=== PATIENT | female | born 1940 | race Caucasian/White ===

== ENCOUNTER 2019-11-02 11:14 | Emergency (ER) | payer MEDICARE, BC ==
[2019-11-02] MEDS ORDERED: Sodium Chloride 0.9% 10 ML Syringe FLUSH PRN (11:41)
[2019-11-02] MEDS ORDERED: Morphine 2 MG/ML Syringe IVPUSH ONE (11:46)
[2019-11-02 12:20] LABS: ANION GAP 12.3; CHLORIDE,CL 102 mmol/L (101-111); SODIUM,NA 141 mmol/L (135-145)
[2019-11-02] MEDS ORDERED: HYDROmorphone 0.5 MG/0.5 ML Syringe IVPUSH ONE (12:24)
--- NOTE | 2019-11-02 13:57 | CR ---
EXAMINATION: Pelvis 1V or 2V SEX: Female AGE: 79 years CLINICAL HISTORY: 79-year-old [facility] patient injured fall out of wheelchair. INTERPRETATION: (AP pelvis) 1. Family comminuted fracture left hemipelvis (innominate bone) with extension/protrusion of the left femoral head into the confines of the pelvis. No proximal left femoral fracture. 2. Accompanying comminuted fractures inferior pubic ramus near the pubic symphysis left hemipelvis. 3. Symmetric spacing SI and contralateral right hip joint which appears intact (deformity contralateral proximal right femur). 4. Chronic arthritic changes lower lumbar spine this osteoporotic patient. CONCLUSION: Markedly abnormal. Comminuted left pelvic fracture.
--- NOTE | 2019-11-02 14:01 | CR ---
EXAMINATION: Clavicle Lt SEX: Female AGE: 79 years CLINICAL HISTORY: 79-year-old female injured fall out of wheelchair at [place]. Badly comminuted FRACTURE left pelvis. INTERPRETATION: 1. Two (2) views left shoulder confirm apparent old midclavicular fracture deformity, on the left. No ipsilateral A/C separation. 2. NOTE: Left midclavicular fracture or initially diagnosed 13 November 2013. 3. No acute left shoulder fracture, before meals separation or glenohumeral dislocation. 4. Underlying ribs upper left hemithorax unremarkable. Left lung apex clear. CONCLUSION: No acute fracture or dislocation left shoulder. Apparent old healed midclavicular fracture on the left.
--- NOTE | 2019-11-02 14:03 | CR ---
EXAMINATION: Femur Min 1V Lt SEX: Female AGE: 79 years CLINICAL HISTORY: 79-year-old female injured (comminuted left pelvic fracture) after fall out of wheelchair at [place]. INTERPRETATION: Single lateral view distal left femur and knee unremarkable. No fracture or dislocation.
--- NOTE | 2019-11-02 14:35 | EDM.PDOC ---
ED HPI GENERAL MEDICAL PROBLEM - General Chief Complaint: Lower Extremity Injury/Pain Stated Complaint: LEFT HIP PAIN Time Seen by Provider: 11/02/19 11:20 Source of Information: Reports: Patient, EMS, EMS Notes Reviewed, Family, Provider (Dr. Taylor), RN, RN Notes Reviewed History Limitations: Reports: No Limitations - History of Present Illness INITIAL COMMENTS - FREE TEXT/NARRATIVE: Pt presents to ER per [facility] with c/o left hip pain. Dr. Taylor , pt provider at [facility] states nursing report of patient falling out of her wheelchair. Patient has hx of dementia, and recent rapid weight loss. Nursing staff reports the patient did not hit her head or get knocked out. Onset: Today, Sudden - Related Data Allergies Allergy/AdvReac Type Severity Reaction Status Date / Time Sulfa (Sulfonamide Allergy Unknown UNKNOWN Verified 11/02/19 11:35 Antibiotics) Home Meds: Home Meds Acetaminophen 650 mg PO Q4H PRN 11/02/19 [History] Aspirin [Halfprin] 81 mg PO DAILY 11/02/19 [History] Bisacodyl [Dulcolax] 10 mg RECTAL DAILY PRN 11/02/19 [History] Calcium Carbonate/Vitamin D3 [Calcium 600 + Vit D 400 Softgl] 1 tab PO BID 11/02 [History] Donepezil HCl 5 mg PO DAILY 11/02/19 [History] Melatonin 3 mg PO BEDTIME 11/02/19 [History] Memantine HCl 5 mg PO BID 11/02/19 [History] Polyethylene Glycol 3350 [MiraLAX] 17 gm PO DAILY 11/02/19 [History] Sennosides/Docusate Sodium [Senna-S] 1 each PO BID 11/02/19 [History] Sertraline HCl 25 mg PO BEDTIME 11/02/19 [History] SitaGLIPtin [Januvia] 50 mg PO DAILY 11/02/19 [History] levETIRAcetam [Keppra] 500 mg PO BID 11/02/19 [History] Past Medical History Cardiovascular History: Reports: Hypertension Gastrointestinal History: Reports: Chronic Constipation Musculoskeletal History: Reports: Osteoporosis Neurological History: Reports: Alzheimers Disease, Seizure Psychiatric History: Reports: Other (See Below) Other Psychiatric History: sleep disorder Endocrine/Metabolic History: Reports: Diabetes, Type II, Osteoporosis, Vitamin D Deficiency Social & Family History - Tobacco Use Smoking Status *Q: Unknown Ever Smoked Second Hand Smoke Exposure: No - Recreational Drug Use Recreational Drug Use: No Review of Systems - Review of Systems Review Of Systems: Comprehensive ROS is negative, except as noted in HPI. ED EXAM, GENERAL - Physical Exam Exam: See Below Exam Limited By: Altered Mental Status (dementia, confusion) General Appearance: Alert, Anxious Eye Exam: Bilateral Eye: EOMI, Normal Inspection Ears: Normal External Exam Nose: Normal Inspection Throat/Mouth: Normal Inspection, Normal Voice, No Airway Compromise Head: Atraumatic, Normocephalic Neck: Normal Inspection, Supple, Non-Tender, Full Range of Motion Respiratory/Chest: No Respiratory Distress, Chest Non-Tender, Decreased Breath Sounds Cardiovascular: Normal Peripheral Pulses, Regular Rate, Rhythm, No Edema, No Gallop, No JVD, No Murmur, No Rub Peripheral Pulses: 1+: Dorsalis Pedis (L), Dorsalis Pedis (R), 2+: Radial (L), Radial (R) GI/Abdominal: Normal Bowel Sounds, Soft, Tender (LLQ) (Female) Exam: Deferred Rectal (Female) Exam: Deferred Extremities: Limited Range of Motion, Other (Pt lateral on left side in position, cries with pain with movement) Neurological: Confused, Disoriented Psychiatric: Other (Patient drowsy from pain medications) Skin Exam: Warm, Dry, Intact, Ecchymosis (Left hip) Lymphatic: No Adenopathy Course - Vital Signs Last Recorded V/S: Last Vital Signs Temp 99.1 F 11/02/19 11:16 Pulse 76 11/02/19 11:16 Resp 18 11/02/19 11:16 BP 115/47 L 11/02/19 11:16 Pulse Ox 97 11/02/19 11:16 - Orders/Labs/Meds Orders: Active Orders 24 hr Category Date Time Status Peripheral IV Care [RC] . DIRECTED Care 11/02/19 11:42 Active Sodium Chloride 0.9% [Saline Flush] Med 11/02/19 11:41 Active 10 ml FLUSH ASDIRECTED PRN Peripheral IV Insertion Adult [OM.PC] Stat Oth 11/02/19 11:30 Ordered Medication Orders Sodium Chloride (Saline Flush) 10 ml FLUSH ASDIRECTED PRN PRN Reason: Keep Vein Open Last Admin: 11/02/19 12:01 Dose: 10 ml Labs: Laboratory Tests 11/02/19 11/02/19 Range/Units 11:50 11:50 WBC 12.0 H (5.0-10.0) 10^3/uL RBC 3.98 L (4.2-5.4) 10^6/uL Hgb 12.6 (12.0-16.0) g/dL Hct 39.6 (37.0-47.0) % MCV 99.5 (80-100) fL MCH 31.7 (27.0-34.0) pg MCHC 31.8 L (33.0-35.0) g/dL Plt Count 251 (150-450) 10^3/uL Neut % (Auto) 86.3 H (42.2-75.2) % Lymph % (Auto) 6.9 L (20.5-50.1) % [place] % (Auto) 6.6 (2-8) % Eos % (Auto) 0.1 L (1.0-3.0) % Baso % (Auto) 0.1 (0.0-1.0) % Sodium 141 (135-145) mmol/L Potassium 4.3 (3.6-5.0) mmol/L Chloride 102 (101-111) mmol/L Carbon Dioxide 31.0 (21.0-31.0) mmol/L Anion Gap 12.3 BUN 35 H (7-18) mg/dL Creatinine 1.0 (0.6-1.3) mg/dL Est Cr Clr Drug Dosing TNP Estimated GFR (MDRD) 53 BUN/Creatinine Ratio 35.00 Glucose 139 H (74-105) mg/dL Calcium 9.2 (8.4-10.2) mg/dl Total Bilirubin 0.6 (0.2-1.0) mg/dL AST 23 (10-42) IU/L ALT 21 (10-60) IU/L Alkaline Phosphatase 35 L (42-121) IU/L Total Protein 6.7 (6.7-8.2) g/dl Albumin 3.6 (3.2-5.5) g/dl Globulin 3.1 Albumin/Globulin Ratio 1.16 Meds: Medications Generic Name Dose Route Start Last Admin Trade Name Freq PRN Reason Stop Dose Admin Sodium Chloride 10 ml 11/02/19 11:41 11/02/19 12:01 Saline Flush FLUSH 10 ml ASDIRECTED PRN Administration Keep Vein Open Discontinued Medications Generic Name Dose Route Start Last Admin Trade Name Kimberly PRN Reason Stop Dose Admin Hydromorphone HCl 0.5 mg 11/02/19 12:24 11/02/19 12:35 Dilaudid IVPUSH 11/02/19 12:25 0.5 mg ONETIME ONE Administration Morphine Sulfate 1 mg 11/02/19 11:46 11/02/19 12:00 Morphine IVPUSH 11/02/19 11:47 1 mg ONETIME ONE Administration - Radiology Interpretation Free Text/Narrative:: pelvis x-ray: 1. Family comminuted fracture left hemipelvis, innominate bone, with extension/ protrusion of the left femoral head into the confines of the pelvis. no proximal left femoral fracture. 2. Accompanying comminuted fractures inferior pubic ramus near the pubic symphysis left hemipelvis. 3. Symmetric spacing SI and contralateral right hip joint which appears intact, deformity contralateral proximal right femur. 4. Chronic arthritic changes lower lumbar spine in this osteoporotic patient. Conclusion: Markedly abnormal. Comminuted left pelvic fracture Left clavicle x-ray: 1. 2 views left shoulder confirm apparent old mid clavicular fracture deformity , on the left. No ipsilateral A/C separation. 2. Note: Left midclavicular fracture or initially [id number] October 2013 3. No acute left shoulder fracture, before meals separation or glenohumeral dislocation. 4. Underlying ribs upper left hemithorax unremarkable. Left lung apex clear. Conclusion: No acute fracture dislocation left shoulder. Apparent old healed midclavicular fracture on the left. Left femur x-ray: single lateral view distal left femur and knee unremarkable. No fracture or dislocation. See radiologist's report - Re-Assessments/Exams Free Text/Narrative Re-Assessment/Exam: 11/02/19 14:54 Patient case discussed with Dr. Vazquez who states the patient would not be a good surgical candidate. Patient case discussed with Dr. Taylor. Dr. Taylor has talked to the family. The patient will be transferred back to the [facility] for [facility] care. Departure - Departure Time of Disposition: 14:35 Disposition: Home, Self-Care 01 Condition: Poor Clinical Impression: Pelvic fracture Qualifiers: Encounter type: initial encounter Pelvic bone location: multiple parts Fracture type: closed Fracture alignment: with unstable disruption of pelvic ring Qualified Code(s): S32.811A - Multiple fractures of pelvis with unstable disruption of pelvic ring, initial encounter for closed fracture [facility] Qualifiers: Encounter type: initial encounter Qualified Code(s): W19.XXXA - Unspecified fall, initial encounter - Discharge Information *PRESCRIPTION DRUG MONITORING PROGRAM REVIEWED*: No *COPY OF PRESCRIPTION DRUG MONITORING REPORT IN PATIENT TONYA: No Forms: ED Department Discharge Additional Instructions: Patient to be discharged back to [facility] in [place] for comfort cares Further orders per Dr. Taylor Sepsis Event Note - Evaluation Sepsis Screening Result: No Definite Risk - Focused Exam Vital Signs: Vital Signs Temp Pulse Resp BP Pulse Ox 11/02/19 11:16 99.1 F 76 18 115/47 L 97 Date Exam was Performed: 11/02/19 Time Exam was Performed: 14:39 - My Orders Last 24 Hours: My Active Orders 11/02/19 11:30 Peripheral IV Insertion Adult [OM.PC] Stat 11/02/19 11:41 Sodium Chloride 0.9% [Saline Flush] 10 ml FLUSH ASDIRECTED PRN 11/02/19 11:42 Peripheral IV Care [RC] . DIRECTED - Assessment/Plan Last 24 Hours: My Active Orders 11/02/19 11:30 Peripheral IV Insertion Adult [OM.PC] Stat 11/02/19 11:41 Sodium Chloride 0.9% [Saline Flush] 10 ml FLUSH ASDIRECTED PRN 11/02/19 11:42 Peripheral IV Care [RC] . DIRECTED
== END 2019-11-02 15:10 | disposition home or self-care (01) ==
LOC: DL.ED 11:14
DX: S32.811A Multiple fractures of pelvis with unstable disruption of pelvic ring, initial encounter for closed fracture (principal); E11.9 Type 2 diabetes mellitus without complications; Z88.2 Allergy status to sulfonamides; Z79.82 Long term (current) use of aspirin; Z79.899 Other long term (current) drug therapy; W05.0XXA Fall from non-moving wheelchair, initial encounter
CPT/HCPCS: 36415; 72170; 73000-LT; 80053; 85025; 96374; 96375; 99283-25; 99284; J1170; J2270